=== PATIENT | male | born 1970 | race Caucasian/White ===

== ENCOUNTER 2020-08-05 18:04 | Emergency (ER) | payer OTHER ==
[~2020-08-05] VITALS: Ht 195.6 cm; Wt 95.2 kg
[2020-08-05 18:54] LABS: BASOPHILS ABSOLUTE AUTO 0.07 K/mm3 (0.00-0.23); BASOPHILS PERCENT AUTO 1 % (0-2); EOSINOPHILS ABSOLUTE AUTO 0.05 K/mm3 (0.00-0.68); EOSINOPHILS PERCENT AUTO 1 % (0-6); Hematocrit 43.4 % (37.0-53.0); Hemoglobin 15.3 g/dL (13.5-17.5); IMMATURE GRAN ABSOLUTE AUTO 0.06 K/mm3 (0.00-0.10); IMMATURE GRAN PERCENT AUTO 1 % (0-1); LYMPHOCYTES PERCENT AUTO 9 % (21-46); MONOCYTES ABSOLUTE AUTO 0.84 K/mm3 (0.16-1.47); MONOCYTES PERCENT AUTO 11 % (4-13); Mean Corpuscular HGB Conc 35.3 g/dL (31.5-36.5); Mean Corpuscular Volume 94 fL (80-100); Mean Platelet Volume 12.9 fL (9.1-12.4); NEUTROPHILS ABSOLUTE AUTO 6.26 K/mm3 (1.96-9.15); NEUTROPHILS PERCENT AUTO 78 % (41-73); Platelet Count 67 K/mm3 (150-400); RDW Coefficient Variation 12.7 % (11.7-14.2); RDW Standard Deviation 44.1 fL (35.1-46.3); Red Blood Cell Count 4.64 M/mm3 (4.30-5.90); White Blood Cell Count 7.98 K/mm3 (4.00-11.30)
[2020-08-05 19:46] LABS: Troponin I <0.015 ng/mL (0.000-0.040)
[2020-08-05 19:49] LABS: Alanine Aminotransfer (ALT/SGP 38 U/L (12-78); Albumin, Blood 2.8 g/dL (3.4-5.0); Albumin/Globulin Ratio 0.7 (0.8-1.8); Alk Phos 94 U/L (50-136); Anion Gap 8 mmol/L (6-16); Aspartate Aminotrans (AST/SGOT 32 U/L (12-37); Bilirubin, Total 0.6 mg/dL (0.1-1.0); Blood Urea Nitrogen 20 mg/dL (8-24); Bun/Creatinine Ratio 14.2 (12.0-20.0); CO2, Blood 22 mmol/L (21-32); Calcium, Blood 8.7 mg/dL (8.5-10.1); Chloride, Blood 106 mmol/L (98-108); Creatinine, Blood 1.41 mg/dL (0.60-1.20); Globulin, Blood 3.8 g/dL (2.2-4.0); Glomerular Filtration Rate 56 (60-); Glucose, Blood 143 mg/dL (70-99); Potassium, Blood 3.9 mmol/L (3.5-5.5); Sodium, Blood 136 mmol/L (136-145); Total Protein, Blood 6.6 g/dL (6.4-8.2)
== END 2020-08-05 22:51 | disposition home or self-care (01) ==
LOC: ER 18:04
PROVIDERS: Emergency Medicine
DX: R50.9 Fever, unspecified (principal); R51.9 Headache, unspecified; N17.9 Acute kidney failure, unspecified; F17.210 Nicotine dependence, cigarettes, uncomplicated
CPT/HCPCS: 36415; 71045; 80053; 83880; 84484; 85025; 96361; 96374; 99284-25; A9270; J1885; J7030

== ENCOUNTER 2020-08-14 09:38 | Observation (INO) | payer OTHER ==
[~2020-08-14] VITALS: Ht 195.6 cm; Wt 86.2 kg
[2020-08-14 10:52] LABS: BASOPHILS ABSOLUTE AUTO 0.04 K/mm3 (0.00-0.23); BASOPHILS PERCENT AUTO 1 % (0-2); EOSINOPHILS ABSOLUTE AUTO 0.01 K/mm3 (0.00-0.68); EOSINOPHILS PERCENT AUTO 0 % (0-6); Hemoglobin 14.7 g/dL (13.5-17.5); IMMATURE GRAN ABSOLUTE AUTO 0.05 K/mm3 (0.00-0.10); IMMATURE GRAN PERCENT AUTO 1 % (0-1); LYMPHOCYTES ABSOLUTE AUTO 0.86 K/mm3 (0.84-5.20); LYMPHOCYTES PERCENT AUTO 10 % (21-46); MONOCYTES ABSOLUTE AUTO 0.47 K/mm3 (0.16-1.47); MONOCYTES PERCENT AUTO 6 % (4-13); Mean Corpuscular HGB 32.1 pg (26.0-34.0); Mean Corpuscular HGB Conc 34.2 g/dL (31.5-36.5); Mean Corpuscular Volume 94 fL (80-100); Mean Platelet Volume 10.6 fL (9.1-12.4); NEUTROPHILS ABSOLUTE AUTO 7.14 K/mm3 (1.96-9.15); NEUTROPHILS PERCENT AUTO 83 % (41-73); Platelet Count 153 K/mm3 (150-400); RDW Coefficient Variation 12.9 % (11.7-14.2); RDW Standard Deviation 44.6 fL (35.1-46.3); Red Blood Cell Count 4.58 M/mm3 (4.30-5.90); White Blood Cell Count 8.57 K/mm3 (4.00-11.30)
[2020-08-14 11:14] LABS: Alanine Aminotransfer (ALT/SGP 65 U/L (12-78); Albumin, Blood 2.8 g/dL (3.4-5.0); Albumin/Globulin Ratio 0.6 (0.8-1.8); Alk Phos 97 U/L (50-136); Anion Gap 9 mmol/L (6-16); Aspartate Aminotrans (AST/SGOT 29 U/L (12-37); Bilirubin, Total 0.7 mg/dL (0.1-1.0); Blood Urea Nitrogen 12 mg/dL (8-24); Bun/Creatinine Ratio 12.5 (12.0-20.0); CO2, Blood 25 mmol/L (21-32); Calcium, Blood 8.8 mg/dL (8.5-10.1); Chloride, Blood 102 mmol/L (98-108); Creatinine, Blood 0.96 mg/dL (0.60-1.20); Globulin, Blood 4.5 g/dL (2.2-4.0); Glomerular Filtration Rate >60 (60-); Glucose, Blood 125 mg/dL (70-99); Potassium, Blood 3.4 mmol/L (3.5-5.5); Sodium, Blood 136 mmol/L (136-145); Total Protein, Blood 7.3 g/dL (6.4-8.2); Troponin I <0.015 ng/mL (0.000-0.040)
[2020-08-14 13:08] LABS: Influenza A, PCR Negative (NEGATIVE); Influenza B, PCR Negative (NEGATIVE); Resp Syncytial Virus, PCR Negative (NEGATIVE); SARS-Cov-2 (COVID-19) PCR, MMC Negative (NEGATIVE)
[2020-08-14] MEDS ORDERED: TESTOSTERONE60 GM TOP (15:03)
[2020-08-14 15:29] LABS: Source, Urine Clean Catch
[2020-08-14 15:41] LABS: Appearance, Urine Clear (Clear); Bilirubin, Urine Neg (Neg); Blood, Urine Neg (Neg); Color, Urine Yellow (P-Yellow); Glucose Qualitative, Urine Neg (Neg); Ketones, Urine Neg (Neg); Leukocyte Esterase, Urine Neg (Neg); Nitrite, Urine Neg (Neg); Protein, Urine 1+ (Neg); Specific Gravity, Urine 1.005 (1.003-1.022); Urobilinogen, Urine NORM (Normal)
[2020-08-14 16:00] LABS: International Normalized Ratio 1.12; Prothrombin Time Results 11.9 Sec (9.7-11.5)
[2020-08-14 16:16] LABS: U Amphetamine Screen Not Detected; U Barbituate Screen Not Detected; U Benzodiazapine Screen Not Detected; U Buprenorphine Screen Not Detected; U Cannabinoids Screen DETECTED; U Cocaine Screen Not Detected; U Methadone Screen Not Detected; U Methamphetamine Screen Not Detected; U Opiates Screen Not Detected; U Oxycodone Screen Not Detected; U Phencyclidine Screen Not Detected; U Propoxyphene Screen Not Detected
--- NOTE | 2020-08-14 16:24 | NUR ---
PATIENT TO TRANSFER TO ROOM 326 FROM ER. RECIEVED REPORT FROM [facility] YA RN @ [id number].
--- NOTE | 2020-08-14 17:22 | NUR ---
PATIENT ARRIVED TO ROOM 326 VIA STRETCHER AND AMBULATED SELF TO THE BATHROOM AND THEN TO HIS BED. ASSESSMENT COMPLETED AND ALL-IN-ALL WNL; SOME DYSPNEA ESPECIALLY WITH EXERTION. VITALS ARE STABLE. PATIENT APPEARS VERY ILL. HAS NOT TAKEN ANYTHING BY MOUTH SINCE YESTERDAY. AT BEDSIDE. ADMISSION ASSESSMENT , H&P AND MED REC COMPLETED WITH ASSISTANCE OF PATIENT. PATIENT RESTING IN BED WITH LIGHT OFF AT THIS TIME. WILL CONTINUE TO MONITOR AND PROVIDE CARE NEEDED.
--- NOTE | 2020-08-14 19:20 | NUR ---
RECEIVED REPORT FROM ELVIRA ANDRADE. A/O. INDEP IN . WILL MONITOR AND PROVIDE CARE T/O SHIFT. CALL LT IN REACH.
--- NOTE | 2020-08-14 21:05 | NUR ---
PT SITTING UP IN BED ON PHONE. RESP E/U ON RA. STATES HE'S DOING FINE AND HAS NO NEEDS AT THIS TIME. CALL LT IN REACH.
--- NOTE | 2020-08-14 22:53 | NUR ---
PT RESTING QUIETLY. CALL LT IN REACH.
--- NOTE | 2020-08-15 04:12 | NUR ---
PT SITTING UP IN BED USING PHONE. STATES HEADACHE IS BETTER AFTER BEING GIVEN THE TYLENOL. NO OTHER NEEDS. CALL LT IN REACH.
--- NOTE | 2020-08-15 04:12 | NUR ---
SHIFT SUMMARY: A/O. INDEPENDENT IN RM. NO COMPLAINTS OF SOB, NAUSEA, N/T. AFEBRILE. VSS. CT SCAN NEG FOR PE. TYLENOL GIVEN FOR HEADACHE X ONE WITH IMPROVEMENT. PT RESTED WELL. NO ACUTE CHANGES. WILL CONTINUE TO MONITOR AND PROVIDE CARE UNTIL SHIFT REPORT.
[2020-08-15 05:11] LABS: BASOPHILS ABSOLUTE AUTO 0.07 K/mm3 (0.00-0.23); BASOPHILS PERCENT AUTO 1 % (0-2); EOSINOPHILS ABSOLUTE AUTO 0.06 K/mm3 (0.00-0.68); EOSINOPHILS PERCENT AUTO 1 % (0-6); Hematocrit 36.1 % (37.0-53.0); Hemoglobin 12.1 g/dL (13.5-17.5); Mean Corpuscular HGB 31.8 pg (26.0-34.0); Mean Corpuscular HGB Conc 33.5 g/dL (31.5-36.5); Mean Corpuscular Volume 95 fL (80-100); Mean Platelet Volume 10.6 fL (9.1-12.4); Platelet Count 133 K/mm3 (150-400); RDW Coefficient Variation 13.2 % (11.7-14.2); RDW Standard Deviation 46.5 fL (35.1-46.3); White Blood Cell Count 6.37 K/mm3 (4.00-11.30)
[2020-08-15 05:12] LABS: IMMATURE GRAN ABSOLUTE AUTO 0.03 K/mm3 (0.00-0.10); IMMATURE GRAN PERCENT AUTO 1 % (0-1); LYMPHOCYTES PERCENT AUTO 27 % (21-46); MONOCYTES ABSOLUTE AUTO 1.47 K/mm3 (0.16-1.47); MONOCYTES PERCENT AUTO 23 % (4-13); NEUTROPHILS ABSOLUTE AUTO 3.04 K/mm3 (1.96-9.15); NEUTROPHILS PERCENT AUTO 48 % (41-73)
[2020-08-15 05:34] LABS: Alanine Aminotransfer (ALT/SGP 55 U/L (12-78); Albumin/Globulin Ratio 0.5 (0.8-1.8); Alk Phos 77 U/L (50-136); Anion Gap 4 mmol/L (6-16); Aspartate Aminotrans (AST/SGOT 34 U/L (12-37); Bilirubin, Total 0.4 mg/dL (0.1-1.0); Blood Urea Nitrogen 14 mg/dL (8-24); Bun/Creatinine Ratio 14.6 (12.0-20.0); CO2, Blood 26 mmol/L (21-32); Calcium, Blood 8.3 mg/dL (8.5-10.1); Chloride, Blood 111 mmol/L (98-108); Creatinine, Blood 0.96 mg/dL (0.60-1.20); Globulin, Blood 3.8 g/dL (2.2-4.0); Glomerular Filtration Rate >60 (60-); Glucose, Blood 106 mg/dL (70-99); Magnesium, Blood 2.2 mg/dL (1.6-2.4); Potassium, Blood 3.8 mmol/L (3.5-5.5); Sodium, Blood 141 mmol/L (136-145); Total Protein, Blood 5.8 g/dL (6.4-8.2)
--- NOTE | 2020-08-15 08:27 | NUR ---
PATIENT HAS HAD PERSISTANT H/A SINCE ADMITTING TO THE FLOOR. ALTERNATING BETWEEN TYLENOL AND IBUPROFEN WITH TEMPORARY IMPROVEMENT HOWEVER THE H/A CONTINUES TO RETURN. CALLED DR BRAXTON TO INFORM HER OF THIS AND SHE STATED SHE WOULD PLACE ORDERS FOR INCREASED DOSAGES OF THE IBUPROFEN AND APAP.
--- NOTE | 2020-08-15 10:42 | NUR ---
Echocardiogram completed.
--- NOTE | 2020-08-15 16:13 | NUR ---
PATIENT STARTED OUT ON MY SHIFT WITH A SPLITTING HEADACHE THAT HE HAD HAD FOR A COUPLE OF DAYS. ALTERNATING B/T IBUPROFEN AND APAP WOULD PROVIDE SOME TEMPORARY RELIEF, HOWEVER IT WAS NEVER LONG-LIVED. WITH THE NEW ORDER PLACED BY DR BRAXTON FOR TRAMADOL I GAVE THE PATIENT THE TRAMADOL WITH TYLENOL WHICH FINALLY GOT RID OF THE H/A FOR GOOD. PATIENT CONTINUES ON PO ABX WITHOUT S/SX OF ADVERSE REACTIONS NOTED OR REPORTED. VITALS REMAIN STABLE AND WNL. SOURCE OF INFECTION HAS YET TO BE LOCATED AT THIS TIME. PATIENT HAS BEEN PLEASANT AND COOPERATIVE WITH STAFF. INDEPENDANT IN ROOM; ALERT AND ORIENTED. RESTING IN BED AT THIS TIME. FIANCE IS AT BEDSIDE. WILL CONTINUE TO MONITOR AND PROVIDE CARE.
--- NOTE | 2020-08-16 06:11 | NUR ---
SUMMARY NO ISSUES NOTED. PT DENIES QUIÑONEZ. PT RESPONDED WELL TO ULTRAM AND APAP GIVEN TOGETHER. PT DENIES ANY FEVERS OR CHILLS. PT HAS SLEPT T/O SHIFT. PT CURRENTLY SLEEPING AND BREATHING EASY. CALL LIGHT IN REACH.
[2020-08-16] MEDS ORDERED: ACET325 PO (16:35)
[2020-08-16] MEDS ORDERED: IBUP600 PO (16:36)
[2020-08-16] MEDS ORDERED: DOXY100 PO (16:36)
[2020-08-16] MEDS ORDERED: PROM25 PO (16:37)
--- NOTE | 2020-08-16 16:53 | NUR ---
PT DISCHARGED FROM THE UNIT IV REMOVED. DISCHARGE INSTRUCTIONS REVIEWED. MEDICATIONS FAXED TO PHARMACY. FOLLOW UP APTS SCHEDULED.
[2020-08-16 23:08] LABS: HIV SCREEN 4TH GENERATION WRFX Non Reactive (Non Reactive)
[2020-08-17 15:07] LABS: ANA DIRECT Negative (Negative)
== END 2020-08-16 16:55 | disposition home or self-care (01) ==
LOC: ER 09:38 → MEDS 09:39 → ENPENDDIS 08-16 16:05 → MEDS 08-16 16:55
PROVIDERS: Emergency Medicine; Internal Medicine Infectious Disease; Nurse Practitioner Acute Care; ADMIT Internal Medicine
DX: R50.9 Fever, unspecified (principal); R65.10 Systemic inflammatory response syndrome (SIRS) of non-infectious origin without acute organ dysfunction; E87.6 Hypokalemia; E78.5 Hyperlipidemia, unspecified; F17.210 Nicotine dependence, cigarettes, uncomplicated; Z79.899 Other long term (current) drug therapy; Z20.828 Contact with and (suspected) exposure to other viral communicable diseases
CPT/HCPCS: 0241U; 36415; 71045; 71260; 80053; 83605; 83735; 84145; 84443; 84484; 85025; 85379; 85384; 85610; 85651; 85730; 86140; 86308; 86430; 86592; 87070; 87205; 87389; 93005; 93010; 93306; 96361; 96365; 96375; 96376; 99284-25; A9270; J2405; J2543; J7030; J7120; Q9967